=== PATIENT | female | born 1950 | race Caucasian/White ===

== ENCOUNTER 2018-05-05 05:09 | Inpatient (IN) ==
[2018-05-05] MEDS ORDERED: Metoprolol Tartrate 25 MG Tablet PO ONE (05:28)
[2018-05-05] MEDS ORDERED: Chlorhexidine Gluconate 2% 1 Pack (2 Cloths) TOPICAL ONE (05:28)
[2018-05-05] MEDS ORDERED: Dexamethasone Inj 20 MG/5 ML Vial IV.PUSH ONE (05:29)
[2018-05-05] MEDS ORDERED: Chlorhexidine 4% Topical 120 APPLIC/120 ML Bottle TOPICAL SCH (05:30)
[2018-05-05] MEDS ORDERED: Sodium Chlor 0.9% Inj 500 ML IV.SIG SCH (06:00)
[2018-05-05] MEDS ORDERED: Vancomycin Inj 1,000 MG in Sodium Chlor 0.9% Inj 250 ML IV.SIG SCH (06:00)
[2018-05-05] MEDS ORDERED: ceFAZolin 2 GM Premix Inj 2 GM/50 ML PIGGYBACK IV.SIG SCH (06:00)
[2018-05-05] MEDS ORDERED: Famotidine PF Inj 20 MG/2 ML Vial ONE (06:19)
[2018-05-05] MEDS ORDERED: Ropivacaine 0.5% PF Inj 20 ML Vial ONE (06:24)
[2018-05-05] MEDS ORDERED: Propofol Inj 500 MG/50 ML Vial ONE (06:35)
[2018-05-05] MEDS ORDERED: fentaNYL Citrate Inj 100 MCG/2 ML Ampul ONE (06:35)
[2018-05-05] MEDS ORDERED: SODIUM CHLOR 0.9% IV.SIG SCH (07:00)
[2018-05-05] MEDS ORDERED: Sodium Chlor 0.9% Inj 73.07 ML, Ropivacaine 0.5% PF Inj 24.63 ML, Ketorolac Inj 30 MG, ... P-ARTICULR SCH ×5 (07:00)
[2018-05-05] MEDS ORDERED: TRANEXAMIC ACID IV.SIG SCH (07:00)
[2018-05-05] MEDS ORDERED: Aluminum/Magnesium/Simethacone Susp 30 ML UDC PO PRN (08:49)
[2018-05-05] MEDS ORDERED: Morphine Inj 4 MG/ML Vial IV.PUSH PRN (08:49)
[2018-05-05] MEDS ORDERED: Bisacodyl 10 MG Supp RECTAL PRN (08:49)
[2018-05-05] MEDS ORDERED: Zolpidem Tartrate 5 MG Tablet PO PRN (08:49)
--- NOTE | 2018-05-05 08:55 | P.OP ---
- Preoperative Diagnosis (1) Primary localized osteoarthritis of right knee - Postoperative Diagnosis (1) Primary localized osteoarthritis of right knee Date of procedure: 05/05/18 Procedure: Right total knee arthroplasty Anesthesia: regional, spinal Surgeon: Lionel Arora MD Radio Station Engineer: MARTINEZ Parr The surgical procedure was assisted by my Advanced Registered Nurse Practitioner. My LETTERSET PRESS SET UP OPERATOR presence was necessary throughout this case for the manipulation and positioning of the surgical extremity. My LETTERSET PRESS SET UP OPERATOR was assisting me throughout the duration of this procedure. The skill set of an Advance Registered Nurse Practitioner was medically necessary to complete this procedure. During the surgical case, the surgical appliances salesperson was working at the back table and the Advance Registered Nurse Practitioner was directly assisting me. Operation and Findings: IMPLANTS: DePuy Attune: Patella: size 35. Femur, posterior stabilized size 5 narrow. Tibia, rotating platform size 4. Tibial insert, rotating platform, posterior stabilized size 5 mm thickness. ESTIMATED BLOOD LOSS: 200 cc TOURNIQUET TIME: 46 minutes at 250 mmHg pressure. JUSTIFICATION FOR PROCEDURE: The patient has end-stage osteoarthritis to the knee. There is an attached conservative measures pathway form in the chart that describes the nonoperative measures that were undertaken prior to consideration of surgical management. The patient understood the risks and benefits of surgical management. See my office notes for further details PROCEDURE: The patient was brought back to the operative theatre. Adequate anesthesia was obtained. The patient received intravenous vancomycin and Ancef. The lower extremity was prepped and draped in the usual sterile fashion.The leg was exsanguinated, the tourniquet was raised. A standard anterior incision was performed followed by medial parapatellar arthrotomy was performed. End-stage arthritis was identified. This was especially so on the lateral side of the knee giving it where on the lateral tibial plateau. Osteotomy of the patella was performed. We drilled holes for the patella. We trialed the patella component. We placed an intramedullary guide into the distal femur. We ultimately resected 13 mm off of the distal femur in 5 degrees of valgus. 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 The remnants of the ACL and PCL were resected. Osteotomy of the proximal tibia was performed, resecting 5 mm off of the medial side. This was done with 3 degrees of posterior slope using an extramedullary guide. The distal end of the guide was placed in the mid aspect of the ankle. The femur was sized, and four chamfer cuts were completed in 3 of external rotation. We then cut the central box in the distal femur to replace the PCL. We resected the remnants of the menisci and removed osteophytes off of the femur and tibia. We then trialed the knee. We punched the tibia for the keel, and then used standard technique to cement in components. Excess cement was removed. We trialed the knee again and the final polyethylene thickness was chosen to provide extension to 0 degrees, and flexion of 140 degrees to gravity. The ligaments were appropriately balanced. Lateral release was necessary to obtain excellent patellofemoral tracking. The tourniquet was released and adequate hemostasis was obtained. An intra- articular injection of a ropivacaine cocktail was injected. The posterior knee was inspected for excess cement, which was removed. The final polyethylene was put into position after thorough irrigation. We then closed deep fascia with a #2 Stratafix followed number 1 V lock by skin with 2-0 Vicryl followed by Dermabond dressing. Postop plan is to weight-bear as tolerated. DVT prophylaxis will be performed with SCDs, LUH hose, early mobilization, and aspirin.
[2018-05-05] MEDS ORDERED: Post-op Orders (for Pharmacy) OTHER STA (09:13)
[2018-05-05] MEDS ORDERED: Tranexamic Acid Inj 749 MG in Sodium Chlor 0.9% Inj 100 ML IV.SIG SCH (10:00)
--- NOTE | 2018-05-05 10:09 | XR ---
EXAM DATE: 05/05/2018 10:02 AM EST AGE/SEX: 67 years / Female INDICATIONS: Post op right knee. CLINICAL DATA: This is the patient's initial encounter. Patient reports that signs and symptoms have been present for 1 day and indicates a pain score of Nonresponsive. MEDICAL/SURGICAL HISTORY: Non-responsive. Non-responsive. COMPARISON: [facility], XR KNEE COMPLETE, RIGHT, 12/11/2015. . FINDINGS: AP and lateral views of the knee following arthroplasty reveals a prosthesis in anatomic alignment. F racture is not appreciated. Surgical drain is evident CONCLUSION: Status post total knee arthroplasty. Bhargav Lopez MD FACR Electronically signed by: Bhargav Lopez MD Board Certified Radiologist 05/05/2018 10:08 AM EST
[2018-05-05] MEDS: Sod Chloride 0.9% Inj 1,000 ML IV.CONT SCH (11:00)
[2018-05-05] MEDS ORDERED: *morphine SULFATE 4 MG/ML PERIprocedure ONLY ONE ×2 (11:12→11:21)
[2018-05-05] MEDS: ceFAZolin Inj 1 GM in Sodium Chlor 0.9% Inj 100 ML IV.SIG SCH ×2 (13:20→18:48)
[2018-05-05] MEDS: Multivitamin/Minerals Therapeutic Tablet PO SCH ×2 (13:35→20:46)
[2018-05-05] MEDS: Senna/Docusate Sodium 8.6/50 MG Tablet PO SCH ×2 (18:34→20:46)
[2018-05-06] MEDS: ceFAZolin Inj 1 GM in Sodium Chlor 0.9% Inj 100 ML IV.SIG SCH (00:05)
[2018-05-06] MEDS: Sod Chloride 0.9% Inj 1,000 ML IV.CONT SCH ×3 (01:20→12:37)
[2018-05-06 05:55] LABS: Hematocrit 32.4 % (35.0-46.0); Hemoglobin 11.2 gm/dL (11.6-15.3)
[2018-05-06] MEDS ORDERED: Sod Chloride 0.9% Inj 1,000 ML IV.SIG SCH (06:00)
--- NOTE | 2018-05-06 07:05 | P.PNOP ---
Subjective Interval history: The patient is resting comfortably in bed with minimal pain to the right knee. The patient has had some hypotension throughout the night. Patient has been ambulatory to the bathroom with no complaints of dizziness or weakness. Physical Exam Vital signs: Vital Signs 05/05/18 07:16 05/05/18 09:14 05/05/18 09:30 Temperature 97.1 F L Pulse Rate 91 H 71 Respiratory Rate 15 15 Blood Pressure 107/58 L 109/60 Pulse Oximetry 99 92 L 95 05/05/18 09:45 05/05/18 10:00 05/05/18 10:15 Temperature Pulse Rate 61 62 59 L Respiratory Rate 17 20 20 Blood Pressure 111/67 121/70 124/72 Pulse Oximetry 92 L 94 L 98 05/05/18 10:45 05/05/18 11:15 05/05/18 11:35 Temperature 97.4 F L Pulse Rate 59 L 70 79 Respiratory Rate 20 20 16 Blood Pressure 119/65 110/61 108/56 L Pulse Oximetry 98 98 95 05/05/18 16:00 05/05/18 17:05 05/05/18 20:57 Temperature 97.1 F L 97.6 F Pulse Rate 60 60 Respiratory Rate 18 18 18 Blood Pressure 113/54 L 98/55 L Pulse Oximetry 93 L 95 05/06/18 02:15 05/06/18 05:00 Temperature 97.7 F 97.7 F Pulse Rate 65 68 Respiratory Rate 17 17 Blood Pressure 104/58 L 90/53 L Pulse Oximetry 92 L 94 L Intake & Output 05/05/18 05/06/18 05/06/18 18:59 06:59 18:59 Intake Total 2400 / 2400 1710 / 1710 Output Total 200 / 200 Balance 2200 / 2200 1710 / 1710 Weight 74.9 kg Intake: IV 400 / 400 1200 / 1200 NS Inj 1,000 ML @ 80 mls/hr IV. 1000 / 1000 CONT .[id number] ABBEY Rx#:[id number] Vancomycin Inj 1,000 MG In NS 250 / 250 Inj 250 ML @ 250 mls/hr IV.SIG STICK ROLLER ABBEY Rx#:[id number] Ancef 2 GM Premix Inj 2 gm In 50 / 50 50 ml @ 100 mls/hr IV.SIG STICK ROLLER ABBEY Rx#:[id number] Ancef Inj 1 GM In NS Inj 100 ML 100 / 100 200 / 200 @ 200 mls/hr IV.SIG Q6H ABBEY Rx #:[id number] Oral 510 / 510 Anesthesia Amount 1999 Output: Estimated Blood Loss 200 / 200 Other: # Voids 2 2 # Bowel Movements 0 Narrative: The patient's dressing is clean, dry, and intact. EHL/TA/G are intact. 2+ pedal pulse. The patient's calf is soft and nontender. Sensation is intact to light touch distally. Results - Labs CBC & Chem 7: 05/06/18 04:09 Laboratory Results - last 24 hr 05/06/18 04:09 Hgb 11.2 L Hct 32.4 L - Imaging Impressions Knee X-Ray 05/05/18 08:49 CONCLUSION: Status post total knee arthroplasty. Bhargav Lopez MD FACR - Procedures Right total knee arthroplasty Assessment and Plan - Assessment and Plan POD #1: [Right] total knee arthroplasty 1. Weightbearing as tolerated on [right] lower extremity. 2. Aspirin 81 mg twice daily for DVT prophylaxis. 3. Ice as needed for swelling. 4. Stable per ortho for discharge home with outpatient physical therapy on Thursday. 5. The patient will follow up with Dr. Arora and/or MARTINEZ Mendez as previously scheduled. 6. The primary nurse was instructed to give normal saline 1 L bolus and repeat blood pressure. The patient's dressing is clean and dry. The patient is currently asymptomatic with her hypotension.
[2018-05-06] MEDS ORDERED: Dexamethasone Inj 20 MG/5 ML Vial IV.PUSH ONE (08:00)
[2018-05-06] MEDS: Pantoprazole Sodium 20 MG DR Tablet PO SCH (08:06)
[2018-05-06] MEDS: Multivitamin/Minerals Therapeutic Tablet PO SCH ×2 (08:07→21:12)
[2018-05-06] MEDS: Lisinopril 5 MG Tablet PO SCH (08:07)
[2018-05-06] MEDS: hydroCHLOROthiazide 25 MG Tablet PO SCH (08:07)
[2018-05-06] MEDS: Senna/Docusate Sodium 8.6/50 MG Tablet PO SCH ×2 (10:30→21:13)
[2018-05-06] MEDS: Spironolactone 25 MG Tablet PO SCH (10:30)
[2018-05-07] MEDS: Sod Chloride 0.9% Inj 1,000 ML IV.CONT SCH (08:09)
[2018-05-07] MEDS: hydroCHLOROthiazide 25 MG Tablet PO SCH (08:21)
[2018-05-07] MEDS: Lisinopril 5 MG Tablet PO SCH (08:21)
[2018-05-07] MEDS: Multivitamin/Minerals Therapeutic Tablet PO SCH (08:22)
[2018-05-07] MEDS: Senna/Docusate Sodium 8.6/50 MG Tablet PO SCH (08:22)
[2018-05-07] MEDS: Pantoprazole Sodium 20 MG DR Tablet PO SCH (08:22)
[2018-05-07] MEDS: Spironolactone 25 MG Tablet PO SCH (08:22)
[2018-05-07 08:35] VITALS: RESP 14
[2018-05-07 08:35] LABS: Hematocrit 32.2 % (35.0-46.0); Hemoglobin 11.3 gm/dL (11.6-15.3)
[2018-05-07 13:36] VITALS: BP 118/72; PULSE 78; TEMP 97.3; O2SAT 90
--- NOTE | 2018-05-07 16:04 | P.DS ---
Date of admission: 05/05/18 08:48 Primary care physician: Gayle Beltrán Attending physician on discharge: Lionle Arora Anticipated date of discharge: 05/07/18 Brief History from admission: The patient was admited to the hospital for severe OA of the right knee to have a right TKA. DS: Summary Hospital Course: The patient was admitted to the hospital for severe osteoarthritis of the [right ] knee to have a [right] total knee arthroplasty. The patient's surgery went well with no complication. The patient is on a [regular] diet. The patient's DVT prophylaxis includes use of [ASA 81 mg PO BID]. The patient is weightbearing as tolerated. The patient was discharged [home with out patient physical therapy] and will follow up in the office with Dr. Arora and/or MARTINEZ Mendez as previously scheduled. - Time Spent with Patient Total time spent providing and/or coordinating discharge services: Greater than 30 minutes - Quality: VTE Deep Vein Thrombosis/Pulmonary Embolism Present on Admission: No Exam Vital signs: Vital Signs 05/06/18 16:00 05/06/18 20:30 05/06/18 23:55 Temperature 98.1 F 98.0 F 98.6 F Pulse Rate 70 67 73 Respiratory Rate 19 17 17 Blood Pressure 110/61 121/65 109/58 L Pulse Oximetry 92 L 94 L 92 L 05/07/18 01:30 05/07/18 04:40 05/07/18 08:00 Temperature 98.5 F 98.5 F Pulse Rate 78 74 Respiratory Rate 16 16 14 Blood Pressure 103/56 L 108/63 Pulse Oximetry 92 L 89 L 05/07/18 12:00 Temperature 97.3 F L Pulse Rate 78 Respiratory Rate 14 Blood Pressure 118/72 Pulse Oximetry 90 L Intake & Output 05/06/18 05/07/18 05/07/18 18:59 06:59 18:59 Intake Total 1000 / 1000 1480 / 1480 Balance 1000 / 1000 1480 / 1480 Weight 74.9 kg Intake: IV 1000 / 1000 1000 / 1000 NS Inj 1,000 ML @ 80 mls/hr IV. 1000 / 1000 1000 / 1000 CONT .[id number] ABBEY Rx#:[id number] Oral 480 / 480 Other: # Voids 3 1 # Bowel Movements 0 Narrative: The patient's dressing is clean, dry, and intact. EHL/TA/G are intact. 2+ pedal pulse. The patient's calf is soft and nontender. Sensation is intact to light touch distally. Results Procedures completed during hospitalization: Right total knee arthroplasty Labs on day of discharge: Labs from last 24 hours 05/07/18 08:19 Hgb 11.3 L Hct 32.2 L - Impressions ITS Impressions Knee X-Ray 05/05/18 08:49 CONCLUSION: Status post total knee arthroplasty. Bhargav Lopez MD FACR Discharge Plan - Discharge Disposition Patient Disposition: Discharge Home - Discharge Condition Condition: Stable - Discharge Order Discharge Orders: Discharge Order (Routine); Ordered 05/05/18 Ordered By: Jake Almaraz - Discharge Details Anticipated Discharge Date: 05/06/18 - Physicians Team Primary Care Provider: Gayle Beltrán Attending Provider: Lionel Arora Other Providers: Vera Gamez - Rxs /Orders / Referrals /Forms Prescriptions: Continue alendronate 70 mg Tablet 70 mg PO QWEEK carvedilol 3.125 mg Tablet 3.125 mg PO BID fluticasone 50 mcg/actuation [place],Suspension 1 spray INTRANASAL DAILY hydrochlorothiazide 12.5 mg Tablet 12.5 mg PO DAILY lisinopril 2.5 mg Tablet 2.5 mg PO DAILY omeprazole 20 mg Tablet,Delayed Release (Dr/Ec) 20 mg PO DAILY spironolactone 25 mg Tablet 25 mg PO DAILY torsemide 10 mg Tablet 10 mg PO DAILY Discontinued meloxicam 15 mg Tablet 15 mg PO DAILY Ambulatory Orders / Order Sets / DME: Adjustable Commode 3-in-1 (1 each) (Routine) Location: Determined by Patient Ordered By: Jake Almaraz CPM - Continuous Passive Motion Machine (1 each) (Routine) Location: Determined by Patient Ordered By: Jake Almaraz Walker With Front Wheels (1 each) (Routine) Location: Determined by Patient Ordered By: Jake Almaraz Referrals: Lionel Arora MD [Physician] - See Instructions (f/u in the office with Dr. Arora or Myron Almaraz APRN as previously scheduled) Gayle Beltrán MD [Primary Care Provider] - See Instructions - Discharge Instructions Patient Printed Instructions: How to Use an Incentive Spirometer (DC), How to Choose and Use a Walker (GEN), [facility] Hose (DC), Knee Replacement (DC) Additional Instructions: Full weight bearing Patient has pre filled meds prior to admission from surgeons office Outpatient physical therapy arrangments made for patient to follow up for therapy after discharge Canvas knee splint at night for use Follow up appointment with Dr Arora on 05/18/18 at 8:30 am - Post Discharge Care Plan Care Plan Goals: Discharge Care Plan Goals for Total Knee Replacement You have undergone knee replacement surgery. Your doctor replaced your painful joint with an artificial joint to relieve pain and restore movement. Here are some goals to help you heal well. Directions to Meet your Goals: 1. Activity & Exercises: * Take pain medicine as directed by your doctor. * Sit in chairs with arms. The arms make it easier for you to stand up or sit down. * Dont sit for more than 30 to 45 minutes at one time. * Nap if you are tired, but dont stay in bed all day. * Sleep with a pillow under your ankle, not your knee. Be sure to change the position of your leg during the night. * Wear the support stockings you were given in the hospital as directed by your surgeon. 2. Prevent Falls/Injury: The lara to successful recovery is movement with walking and exercising your knee as directed by your doctor. * Arrange your household to keep the items you need handy. Keep everything else out of the way. * Remove items that may cause you to fall, such as throw rugs and electrical cords. * Use nonslip bath mats, grab bars, an elevated toilet seat, and a shower chair in your bathroom * Sit on a shower stool or chair when you shower to keep from falling. * Until your balance, flexibility, and strength improve, use a cane, crutches, a walker, handrails, or someone to help you. * Keep your hands free by using a backpack, alen pack, apron, or pockets to carry things * Walk up and down stairs with support. Try one step at a time. Use the railing if possible. * Dont drive until your doctor says its OK. * Dont drive while you are taking opioid pain medicine. 3. Precautions: * Prevent infection. Any infection will need to be treated immediately. Call your doctor right away if you think you might have an infection. * Tell your dentist that you have an artificial joint and take antibiotics as prescribed before any dental work. * Tell all your healthcare providers about your artificial joint before any medical procedure. * Maintain a healthy weight. Get help to lose any extra pounds. Added body weight puts stress on the knee. * Your medications may include blood-thinning medicine to prevent blood clots or antibiotics to prevent infection-prevent any falls or cuts 4. Incision Care: * Prevent infection by washing your hands often. If an infection occurs, it will need to be treated right away. * Call your doctor right away if you think you may have an infection. Symptoms include a fever or an incision that leaks white, green, or yellow fluid. * Don't soak your incision in water until your doctor says its OK. This means no hot tubs, bathtubs, or swimming pools. * Follow your doctor's instructions for changing the dressing. * Dont rub the incision, or apply creams or lotions to it. * If you notice any redness or drainage around the bandage site, contact your surgeon's office immediately. 5. Follow-Up: Do Not miss your follow-up appointment. Keep up with all your appointments and yearly check ups When to call your doctor: Call your doctor right away if you have: Fever of 100.4F (38C) or higher, or as directed by your doctor Shaking chills Stiffness, or inability to move the knee Increased swelling in your leg Increased redness, tenderness, or swelling in or around the knee incision Drainage from the knee incision Increased knee pain Call 911: Call 911 right away if you have: Chest pain Shortness of breath Any pain or tenderness in your calf
== END 2018-05-07 14:01 | disposition home or self-care (01) | DRG 470 ==
LOC: HSDC 05:09 → EDSTATUS 07:00 → HSDI 08:48 → N06 11:42
PROVIDERS: ADMIT Orthopaedic Surgery; ATTEND Orthopaedic Surgery
CPT/HCPCS: 73560; 85014; 85018; 86850; 86900; 86901; 94150; 97110; 97116; 97150; 97162; 97166; 97535; C1776; J0131; J0171; J0690; J0735; J1100; J1580; J1885; J2250; J2270; J2704; J2795; J3010; J3370; J7030; J7050; J7120; L1830